=== PATIENT | female | born 1985 | race Caucasian/White ===

== ENCOUNTER 2018-08-22 16:57 | Emergency (ER) | payer MEDICAID ==
[~2018-08-22] VITALS: Ht 167.6 cm; Wt 76.7 kg
[2018-08-22 17:19] VITALS: BP 141/97
--- NOTE | 2018-08-22 17:25 | NUR ---
PT AMBULATED TO LOBBY AT THIS TIME W/ VSS.
--- NOTE | 2018-08-22 18:45 | NUR ---
PATIENT AMBULATED TO ER BED 9.
--- NOTE | 2018-08-22 19:00 | NUR ---
PT IS A 33 Y/O FEMALE WHO PRESENTS TO THE ED C/O HEADACHE. PER PT SYMPTOMS HAVE BEEN GOING ON X1 WEEK. PT REPORTS 8/10 ACHING BILATERAL SCIENTOLOGIST PAIN THAT DOES NOT RADIATE. TOOK EXCEDRIN AND TYLENOL WITH NO RELIEF. PT REPORTS MILD BLURRY VISION, REPORTS NAUSEA/DIARRHEA DENIES VOMITING. PT DENIES CP, SOB. PT AWAKE AND ALERT, RR EVEN/UNLABORED. PT REPOSITIONED FOR COMFORT, BED IN LOWEST POSITION. ER MD NOTIFIED. WILL CONTINUE TO MONITOR. MEDHX:MIGRANES RX:EXCEDRINE
[2018-08-22] MEDS ORDERED: ONDANSETRON 4 MG/2 ML VIAL IVP ONE (20:05)
[2018-08-22] MEDS ORDERED: KETOROLAC 30 MG/ML VIAL IVP ONE (20:05)
[2018-08-22] MEDS ORDERED: NACL 0.9% 1,000 ML IV ONE (20:05)
[2018-08-22] MEDS ORDERED: MORPHINE SULFATE 4 MG/ML SYR IVP ONE (20:40)
[2018-08-22] MEDS ORDERED: PROCHLORPERAZINE 10 MG/2 ML VIAL IVP ONE (21:25)
[2018-08-22 22:00] VITALS: BP 128/81
--- NOTE | 2018-08-22 22:00 | NUR ---
Patient discharged with v/s stable. Written and verbal after care instructions given and explained. Patient alert, oriented and verbalized understanding of instructions. Ambulatory with steady gait. All questions addressed prior to discharge. ID band removed. Patient advised to follow up with PMD. Rx of FIORINAL given. Patient educated on indication of medication including possible reaction and side effects. Opportunity to ask questions provided and answered.
== END 2018-08-22 22:00 | disposition home or self-care (01) ==
LOC: MED 16:57
DX: G43.909 Migraine, unspecified, not intractable, without status migrainosus (principal); R11.2 Nausea with vomiting, unspecified
CPT/HCPCS: 81025; 96361; 96374; 96375; 99283; J0780; J1885; J2270; J2405; J7030